=== PATIENT | male | born 1955 | race Caucasian/White ===

== ENCOUNTER 2018-05-02 07:40 | Inpatient (IN) | payer BC, OTHER, SELFPAY ==
--- NOTE | 2018-05-02 08:15 | RAD ---
1 VIEW CHEST: Date: 05/02/18 HISTORY: Heart attack. COMPARISON: 10/24/14. FINDINGS: There are stable sternotomy wires and mediastinal clips. Heart is enlarged. There is atherosclerosis of the aorta. Pulmonary vessels and hilum are normal. Costophrenic angles ar e clear. No consolidation or mass. No pneumothorax or osseous abnormalities. IMPRESSION: 1. Cardiomegaly. No evidence of congestive heart failure. 2. Atherosclerosis. POS: KELECHI
[2018-05-02 08:29] LABS: #Eosinphils 0.1 thou/uL (0.0-0.7); #Lymphocytes 0.9 thou/uL (1.20-3.40); #Monocytes 0.4 thou/uL (0.11-0.59); #Neutrophils 8.1 thou/uL (1.40-6.50); %Eosinophils 1.1 % (0.0-10.0); %Lymphocytes 9.3 % (21.0-51.0); %Monocytes 4.3 % (0.0-10.0); %Neutrophils 85.3 % (42.0-75.0); Hemoglobin 16.2 g/dL (14.0-18.0); Mean Corpuscular HGB CONC 33.6 g/dL (32.0-36.0); Mean Corpuscular Hemoglobin 29.5 pg (27.0-31.0); Mean Corpuscular Volume 87.8 fL (78.0-98.0); Platelet Count 189 thou/uL (130-400); RBC Distribution Width 12.5 % (11.5-14.5); White Blood Cell (WBC) Count 9.5 thou/uL (4.8-10.8)
[2018-05-02 08:41] LABS: ALT (SGPT) 14 U/L (8-55); AST (SGOT) 16 U/L (5-34); Albumin 3.8 g/dL (3.4-4.8); Alkaline Phosphatase 65 U/L (40-150); Anion Gap 11 mmol/L (10-20); BUN (Urea Nitrogen) 18 mg/dL (8.4-25.7); Bilirubin, Total 0.6 mg/dL (0.2-1.2); CK (CPK) 31 U/L (30-200); Calc. Creatinine Clearance 0 mL/min (70-130); Calcium 8.9 mg/dL (7.8-10.44); Carbon Dioxide 23 mmol/L (23-31); Chloride 107 mmol/L (98-107); Estimated GFR-MDRD 73; Globulin 3.3 g/dL (2.4-3.5); Glucose 133 mg/dL (80-115); Potassium 4.5 mmol/L (3.5-5.1); Protein, Total 7.1 g/dL (5.8-8.1); Sodium 136 mmol/L (136-145)
[2018-05-02] MEDS ORDERED: Ondansetron PF 4 MG/2 ML Vial IVP PRN ×2 (10:00→14:40)
[2018-05-02] MEDS ORDERED: Ondansetron ODT 4 MG TAB SL PRN (10:00)
--- NOTE | 2018-05-02 10:32 | CT ---
CT ANGIOGRAM OF THE HEAD: DATE: 05/02/2018. COMPARISON: None. HISTORY: Generalized weakness with chest pain and vision changes on the right. TECHNIQUE: Axial CT imaging at 5 mm intervals from vertex through the skull base without contrast. Then, axial CT imaging obtained at 1.25 mm intervals from vertex through the skull base using a CT angiogram prot ocol. Coronal and sagittal 3D reformatted imaging obtained. FINDINGS: The noncontrast-enhanced head CT demonstrates the imaged paranasal sinuses and mastoid air cells to b e well aerated. There is atherosclerotic calcification of the cavernous carotid arteries. There is no intracranial hemorrhage, midline shift, mass effect, or ventricular enlargement. Postcontrast CT angiogram imaging demonstrated patency of the imaged portions of bilateral vertebral arteries. The imaged portions of the left vertebral artery are hypoplastic, particularly the distal left vertebral artery. The basilar artery is patent. The posterior cerebral artery on the right is patent. The posterior cerebral artery on the left is o ccluded, best seen on axial image 86 and coronal image 59. It is occluded as it extends posterior to the left cerebral peduncle. The imaged extracranial internal carotid artery is patent. The M1 segment and the MCA bifurcation appears grossly unremarkable bilaterally. The A1 segment is p atent bilaterally. Distal HARIS and MCA branches appear grossly unremarkable. IMPRESSION: Occlusion of the posterior cerebral artery on the left. Recommend followup MRI of the brain to asses s for an associated left posterior CONTENT WRITER infarction. No intracranial hemorrhage. CODE T POS: KENDRA
[2018-05-02] MEDS ORDERED: ISOVUE-370 76%-LOCM 1 ML ONE (10:48)
[2018-05-02 13:03] LABS: Troponin I Less than 0.010 ng/mL (< 0.028)
--- NOTE | 2018-05-02 14:15 | HP ---
PRIMARY CARE PHYSICIAN: Dr. Prabhu Lees. REASON FOR ADMISSION: CVA/TIA. HISTORY OF PRESENT ILLNESS: A 62-year-old male, who has multiple medical problems including vasculopathy, he required CABG x2, he has ongoing smoking history, who presented to emergency room with complaint of visual change. The patient reports that when he went to bed, at that time he was perfectly fine last night. He woke up around 4 a.m. When he went to bathroom, he noticed that he was not able to see half vision from his right eye. He was requiring a lot of effort to focus on the right side. He was able to see perfectly fine with the left eye. He was seated at home feeling he will get better, but when this morning, he wanted to go to hunting, he was not feeling right and that is why around 6 o'clock he called Paramedics, and Paramedics brought him to emergency room for evaluation. He did not have any motor weakness. He was feeling little bit dizzy last night. He does feel headache on the left side. He denies any nausea, vomiting, chest pain, palpitation, shortness of breath. He denies any motor or sensory symptoms in both upper or lower extremities. In the emergency room, CT angiography of head showed occlusion of the posterior cerebral artery on the left side. Chest x-ray was unremarkable. Routine blood test was unremarkable. The patient is being admitted for rule out stroke. REVIEW OF SYSTEMS: CONSTITUTIONAL: Negative for weight loss or gain, ability to conduct usual activities. SKIN: Negative for rash, itching. EYES: Negative for double vision, pain. ENT/MOUTH: Negative for nose bleeding, neck stiffness, pain, tenderness. CARDIOVASCULAR: Negative for palpitations, dyspnea on exertion, orthopnea. RESPIRATORY: Negative for shortness of breath, wheezing, cough, hemoptysis, fever or night sweats. GASTROINTESTINAL: Negative for poor appetite, abdominal pain, heartburn, nausea, vomiting, constipation, or diarrhea. GENITOURINARY: Negative for urgency, frequency, dysuria, nocturia. MUSCULOSKELETAL: Negative for pain, swelling. NEUROLOGIC/PSYCHIATRIC: Negative for anxiety, depression. ALLERGY/IMMUNOLOGIC: Negative for skin rash, bleeding tendency. Please see my HPI for pertinent positives and negatives. All other review of systems reviewed and negative except as mentioned in HPI. PAST MEDICAL HISTORY: Coronary artery disease, required CABG x2; history of [place]; hypertension; dyslipidemia; tobacco abuse disorder; history of carotid atherosclerosis on the left side; benign enlargement of prostate. PAST SURGICAL HISTORY: CABG x2, bilateral wrist surgery. PAST PSYCHIATRIC HISTORY: Reviewed. Anxiety and depression. SOCIAL HISTORY: The patient drinks alcohol socially. He smokes about one pack per day since age 12. He denies any other illicit drug abuse. He lives at home with family. FAMILY HISTORY: Positive for coronary artery disease, hypertension among several family members. ALLERGIES: DIAZEPAM. CURRENT HOME MEDICATIONS: The patient did not bring his home medication, so we are not able to verify his home medication, but based on our hospital record, the patient is on following medications: 1. Aspirin 325 mg p.o. daily. 2. Cymbalta 60 mg daily. 3. Multivitamin one tablet daily. 4. Fish oil 4 g daily. 5. Omeprazole 20 mg daily. 6. Flomax 0.4 mg at bedtime. 7. Coreg 6.25 mg p.o. b.i.d. 8. Plavix 75 mg p.o. daily. 9. Lisinopril 2.5 mg p.o. daily. EMERGENCY ROOM COURSE: The patient is given aspirin 324 mg. PHYSICAL EXAMINATION: VITAL SIGNS: On arrival, blood pressure 170/93, pulse 55, respiratory rate 18, temperature 98.1, saturation 94% on room air. Weight 102.6 kg. GENERAL: The patient is currently alert, awake. No obvious acute distress. HEAD: Normocephalic, atraumatic. Eyes, pupils round, reactive to light. Extraocular muscle intact. No nystagmus. NECK: Supple. No JVD. No thyromegaly. No carotid bruit. LUNGS: Clear to auscultation without any rhonchi or rales. CARDIAC: S1 and S2 regular. No murmur. No gallop. No rub. ABDOMEN: Soft. Bowel sounds present. Nontender. Nondistended. No organomegaly. No mass. No suprapubic tenderness. BACK: Unremarkable. No CVA tenderness. EXTREMITIES: Upper extremities; passive movement of all joints is normal. Lower extremities; no edema, good distal pulsation. SKIN: No skin rash. HEMATOLOGICAL: No lymphadenopathy. PSYCHIATRIC: Normal affect. NEUROLOGIC: The patient does have mild visual changes from the right eye, but other than that, the patient's motor and sensory system exam are normal. Reflex is symmetrical. Plantar bilateral flexor. No cerebellar sign. LABORATORY DATA: Significant labs; EKG showing sinus bradycardia, sinus arrhythmia without any ischemic changes. CT of brain negative for any acute intracranial process. CT angiography showed occlusion of the posterior cerebral artery on the left side. CBC; WBC 9.5, hemoglobin 16.2, and platelets 189. BMP; sodium 136, potassium 4.5, chloride 107, carbon dioxide 23, BUN 18, creatinine 1.03, glucose 133, calcium 8.9. LFT: AST 16, ALT 14, alkaline phosphatase 65, albumin 3.8. Troponin less than 0.010. ASSESSMENT AND PLAN: Impression: 1. Acute transient ischemic attack/cerebrovascular accident. The patient does have occlusion of a posterior cerebral artery on the left side and the patient's symptoms of visual changes on the right side corresponds with occipital lobe transient ischemic attack/cerebrovascular accident. At this point, we will keep this patient on Stroke floor. We will consult Neurology. We will do MRI, carotid Doppler, echocardiography as a part of workup. We will continue with aspirin 325 mg p.o. daily, Plavix 75 mg p.o. daily, Lipitor 40 mg p.o. at bedtime. His blood pressure medication, Coreg 6.25 mg p.o. will be started, and we will restart all his home medication after verification of his home medication. 2. Hypertension, currently not well controlled. We will try to keep his blood pressure around 160 to 180s. We will continue only his home medication. 3. Dyslipidemia. Check lipid profile tomorrow morning and continue Lipitor 40 mg p.o. at bedtime. 4. Benign enlargement of prostate. Continue Flomax 0.4 mg p.o. at bedtime after verification. 5. Gastroesophageal reflux disease. We will continue Protonix 40 mg p.o. daily. 6. Coronary artery disease with history of coronary artery bypass grafting. Continue aspirin, Plavix, beta renetta as per home dosage. 7. Tobacco abuse disorder. Smoking cessation counseling given. Healthy lifestyle measure discussed with the patient. 8. Anxiety and depression. Continue the patient's home medication of Cymbalta as per home dosage. 9. Deep venous thrombosis prophylaxis, Lovenox 40 mg subcu daily. 10. Gastrointestinal prophylaxis, Protonix 40 mg p.o. daily. CODE STATUS: The patient is full code. The patient does not have any surrogate decision maker. DISPOSITION PLAN: Based on clinical course, likely within 24 hours, pending above-mentioned investigation result. Job ID: [id number]
[2018-05-02] MEDS ORDERED: Bisacodyl 5 MG TAB PO PRN (14:40)
[2018-05-02] MEDS ORDERED: Bisacodyl 10 MG SUPP PR PRN (14:40)
[2018-05-02] MEDS ORDERED: Calcium Carbonate 500 MG ChewTAB PO PRN (14:40)
[2018-05-02] MEDS ORDERED: Loperamide HCl 2 MG CAP PO PRN (14:40)
[2018-05-02] MEDS ORDERED: HYDROcodone/Acetaminophen 5/325 mg Tablet PO PRN (14:40)
[2018-05-02] MEDS ORDERED: Ondansetron ODT 4 MG TAB PO PRN (14:40)
[2018-05-02] MEDS ORDERED: Acetaminophen 325 MG TAB PO PRN (14:40)
[2018-05-02] MEDS ORDERED: Senokot S 8.6-50 MG TAB PO PRN (14:40)
[2018-05-02] MEDS ORDERED: Zolpidem Tartrate 5 MG TAB PO PRN (14:40)
[2018-05-02 14:46] VITALS: BMI 28.8
[2018-05-02] MEDS: hydrALAZINE 20 MG/ML VIAL SLOW IVP PRN (15:07)
[2018-05-02 15:34] LABS: Troponin I Less than 0.010 ng/mL (< 0.028)
[2018-05-02] MEDS ORDERED: Labetalol HCl 100 MG/20 ML VIAL SLOW IVP SCH (17:30)
--- NOTE | 2018-05-02 18:37 | ULT ---
CAROTID ARTERIAL DOPPLER ULTRASOUND 05/02/18 COMPARISON: None. HISTORY: Generalized weakness with chest pain and vision changes. TECHNIQUE: Multiplanar self scale sonographic imaging of the arterial structures of the neck obtained. Arterial structures are assessed with color and spectral analysis. FINDINGS: Partially calcified plaque noted at the origin of the right internal carotid artery extending into th e mid right ICA. Mild partially calcified plaque noted in proximal left internal carotid artery extending into the mid left internal carotic artery. Antegrade blood flow and normal arterial waveforms are documented with in the carotid and the vertebral system bilaterally. VESSELS PSV (cm/s) EDV (cm/s) Right CCA 99 14 Right ICA 49 14 Right ECA 109 21 Left CCA 84 17 Left ICA 134 41 Left ECA 127 28 ICA/CCA ratio is 0.5 on the right and 1.6 on the left. IMPRESSION: Mildly elevated velocity within the left internal carotid artery correlates with a moderate degree of stenosis (50-69%). Further assessment via CT angiogram of the neck is advised. POS: KELECHI
--- NOTE | 2018-05-02 18:57 | MRI ---
BRAIN MRI WITHOUT CONTRAST: 05/02/18 COMPARISON: None. HISTORY: Transient ischemic attack, assess for acute infarction. TECHNIQUE: Multiplanar and multisequence MR imaging of the brain is obtained without contrast. FINDINGS: There is an area of restricted diffusion within the inferomedial left temporo-occipital region, measu ring 6 cm AP dimension x 2.2 cm transverse dimension consistent with an acute infarction of left UPPER LEATHER SORTER territory. This correlates with the occlusion of the left UPPER LEATHER SORTER seen on recent CT angiogram of the head also performed 05/02/18. The axial gradient echo imaging demonstrates no associated intracranial hemorrhage. The T2 and FLAIR imaging demonstrates cortical increased signal intensity in the area of the above described acute inf arction. There are multiple scattered foci of increased T2 and FLAIR signal within the periventricul ar, deep, and subcortical white matter, evidence of small vessel disease. Regional bone marrow signal intensity appears within normal limits. Imaged paranasal sinuses/mastoid air cells grossly unremarkable. IMPRESSION: Acute left UPPER LEATHER SORTER infarction. POS: KELECHI
[2018-05-02] MEDS ORDERED: Melatonin 3 MG TAB PO SCH (21:00)
[2018-05-02] MEDS ORDERED: Atorvastatin Calcium 40 MG TAB PO SCH (21:00)
--- NOTE | 2018-05-03 01:28 | CON ---
DATE OF CONSULTATION: 05/02/2018 TYPE OF CONSULTATION: Neurology. CONSULTING PHYSICIAN: Hospitalist service. IMPRESSION: 1. Left posterior cerebral artery stroke resulting in secondary headache and reading difficulties. 2. Hypertension. 3. Coronary artery disease. 4. Tobacco use. PLAN: 1. Aspirin 325 mg per day. 2. Start a statin. 3. Discontinue smoking. 4. Cautiously lower the blood pressure over the next 24 hours. 5. The patient will be discharged to home once his pressure has stabilized. HISTORY: Mr. Hussein is a 62-year-old male with a past history as listed above. He developed acute onset of headache and came to the emergency room for evaluation. His initial CT angiogram showed an absent left posterior cerebral artery. He was admitted for further evaluation. He had an MRI of the brain done today, which showed an area of ischemia involving the left mesiotemporal lobe. His carotid Doppler does not show any extracranial stenosis. He was not taking aspirin or statin prior to this event. His blood pressures have been running quite high since admission, currently it is 217/100. He has been afebrile. He denies any nausea, vomiting, dizziness, blurred vision, lateralized weakness or numbness. There is no past history of TIA or stroke-like symptoms. PAST MEDICAL HISTORY: As listed above. PAST SURGICAL HISTORY: Coronary bypass. FAMILY HISTORY: Noncontributory. SOCIAL HISTORY: One pack of cigarettes per day. Minimal alcohol use. MEDICATIONS: List was reviewed. REVIEW OF SYSTEMS: No complaints of chest pain, shortness of breath, abdominal pain, cramps, or diarrhea. PHYSICAL EXAMINATION: GENERAL: He is a somewhat overweight middle-aged man, in no acute distress. VITAL SIGNS: Blood pressure 117/100, pulse 66, respirations 20, and temperature 97.9. HEENT: Pupils are equal and reactive. Conjunctivae are clear. Oropharynx is clear. Normocephalic and atraumatic. NECK: Supple. No lymphadenopathy. EXTREMITIES: No cyanosis, clubbing, or edema. NEUROLOGIC: He was alert and cooperative. His speech was fluent and clear. Cranial nerves appeared to be intact without any visual field deficits. He comprehended commands quite well, but reports that he could not read the menu to determine what he wanted to eat. Cranial nerve exam is otherwise unremarkable. Motor, strength is symmetric without fix or drift. Cerebellar testing shows normal [id number] and rapid alternating movements. He can walk independently. Sensation is intact to touch. Plantar responses were downgoing on the left and upgoing on the right. DIAGNOSTIC DATA: EKG shows sinus rhythm. Imaging was reviewed. SUMMARY: Middle-aged man with multiple risk factors, who suffered a medium vessel stroke, was not on any type of antiplatelet therapy or statin. Hopefully, he will make a good recovery over the next few days. Job ID: [id number]
[2018-05-03] MEDS: hydrALAZINE 20 MG/ML VIAL SLOW IVP PRN (04:26)
[2018-05-03 05:38] LABS: Cholesterol 160 mg/dl (< 200 Desired); HDL Cholesterol 32 mg/dL (>60 Neg Risk); LDL Cholesterol, Calculated 92 mg/dL; Magnesium 1.6 mg/dL (1.6-2.6); Potassium 3.8 mmol/L (3.5-5.1); Triglycerides 178 mg/dL (Less than 150)
[2018-05-03] MEDS: Cyclobenzaprine 10 MG TAB PO SCH ×2 (08:36→14:15)
[2018-05-03] MEDS: HYDROcodone/Acetaminophen 10/325 mg Tablet PO SCH ×2 (08:37→14:13)
[2018-05-03] MEDS ORDERED: Famotidine 20 MG TAB PO SCH (09:00)
[2018-05-03] MEDS ORDERED: Enoxaparin Sodium 40 MG/0.4 ML SYRINGE SC SCH (09:00)
[2018-05-03] MEDS ORDERED: Lisinopril 5 MG TAB PO SCH (09:00)
[2018-05-03] MEDS ORDERED: Amitriptyline HCl 25 MG TAB PO SCH (09:00)
[2018-05-03] MEDS ORDERED: Carvedilol 6.25 MG TAB PO SCH (09:00)
[2018-05-03] MEDS ORDERED: Aspirin 81 mg Enteric Coated Tablet PO SCH (09:00)
[2018-05-03] MEDS ORDERED: Clopidogrel Bisulfate 75 MG TAB PO SCH (09:00)
--- NOTE | 2018-05-03 10:38 | PDOC.PN ---
- Subjective Encounter Start Date: 05/03/18 Encounter Start Time: 07:10 -: old records requested/rev Patient seen and examined. No new complaints. No overnight events he has difficulty reading with right eye - Objective Resuscitation Status - Order Detail: 05/02/18 13:13 Resuscitation Status Routine Resuscitation Status: FULL: Full Resuscitation MAR Reviewed: Yes Vital Signs & Weight: Vital Signs (12 hours) Temp Pulse Pulse Pulse Resp BP BP 05/03/18 08:54 167/92 H 179/103 H 05/03/18 08:37 73 05/03/18 08:00 97.6 F 73 16 05/03/18 07:59 79 83 176/84 H 188/96 H 05/03/18 04:46 98.1 F 72 16 05/03/18 04:26 92 05/03/18 04:19 92 05/02/18 23:27 98.5 F 82 16 BP Pulse Ox 05/03/18 08:54 05/03/18 08:37 05/03/18 08:00 172/91 H 99 05/03/18 07:59 05/03/18 04:46 98 05/03/18 04:26 05/03/18 04:19 190/93 H 05/02/18 23:27 142/99 H 98 Weight Weight 225 lb 1 oz I&O: 05/02/18 05/03/18 05/04/18 06:59 06:59 06:59 Intake Total 1621 Balance 1621 Result Diagrams: 05/02/18 08:08 05/03/18 04:20 Radiology Reviewed by me: Yes (MRI left FIBER HEEL PIECE SHAPER CVA) EKG Reviewed by me: Yes (nsr) Phys Exam - Physical Examination Constitutional: NAD HEENT: PERRLA, moist MMs, sclera anicteric Neck: no JVD, supple Respiratory: no wheezing, no rales, no rhonchi Cardiovascular: RRR, no significant murmur, no rub Gastrointestinal: soft, non-tender, no distention, positive bowel sounds Musculoskeletal: no edema, pulses present Neurological: non-focal, normal sensation, moves all 4 limbs Psychiatric: normal affect, A&O x 3 Skin: no rash, normal turgor Dx/Plan (1) Acute CVA (cerebrovascular accident) Code(s): I63.9 - CEREBRAL INFARCTION, UNSPECIFIED Status: Acute Comment: acute left FIBER HEEL PIECE SHAPER CVA due to infarct (2) Back pain, chronic Code(s): M54.9 - DORSALGIA, UNSPECIFIED; G89.29 - OTHER CHRONIC PAIN Status: Chronic (3) CAD (coronary artery disease) Code(s): I25.10 - ATHSCL HEART DISEASE OF [place] CORONARY ARTERY W/O ANG PCTRS Status: Chronic (4) Carotid stenosis, left Code(s): I65.22 - OCCLUSION AND STENOSIS OF LEFT CAROTID ARTERY Status: Chronic (5) Depression Code(s): F32.9 - MAJOR DEPRESSIVE DISORDER, SINGLE EPISODE, UNSPECIFIED Status : Chronic (6) Hyperlipidemia Code(s): E78.5 - HYPERLIPIDEMIA, UNSPECIFIED Status: Chronic (7) Hypertension Code(s): I10 - ESSENTIAL (PRIMARY) HYPERTENSION Status: Chronic (8) Tobacco abuse Code(s): Z72.0 - TOBACCO USE Status: Chronic - Plan cont current plan of care, PT/OT * will get CT angio neck to rule out carotid stenosis * medication reviewed as below * symptomatic treatment * continue current optimum medical therapy * neurology recommendation noted * counselled to avoid smoking. Review of Systems - Review of Systems Constitutional: negative: fever, chills, sweats, weakness, malaise, other Eyes: Vision Change. negative: Pain, Conjunctivae Inflammation, Eyelid Inflammation, Redness, Other ENT: negative: Ear Pain, Ear Discharge, Nose Pain, Nose Discharge, Nose Congestion, Mouth Pain, Mouth Swelling, Throat Pain, Throat Swelling, Other Respiratory: negative: Cough, Dry, Shortness of Breath, Hemoptysis, SOB with Excertion, Pleuritic Pain, Sputum, Wheezing Cardiovascular: negative: chest pain, palpitations, orthopnea, paroxysmal nocturnal dyspnea, edema, light headedness, other Gastrointestinal: negative: Nausea, Vomiting, Abdominal Pain, Diarrhea, Constipation, Melena, Hematochezia, Other Genitourinary: negative: Dysuria, Frequency, Incontinence, Hematuria, Retention , Other Musculoskeletal: negative: Neck Pain, Shoulder Pain, Arm Pain, Back Pain, Hand Pain, Leg Pain, Foot Pain, Other Skin: negative: Rash, Lesions, Gregorio, Bruising, Other - Medications/Allergies Allergies/Adverse Reactions: Allergies Allergy/AdvReac Type Severity Reaction Status Date / Time diazepam [From Valium] Allergy "makes me Verified 08/16/15 14:23 itch" Medications: Current Medications Acetaminophen (Tylenol) 650 mg PO Q4H PRN PRN Reason: Headache/Fever/Mild Pain (1-3) Last Admin: 05/02/18 17:26 Dose: 650 mg Hydrocodone Bitart/Acetaminophen (Llano 5/325) 1 tab PO Q4H PRN PRN Reason: Moderate Pain (4-6) Last Admin: 05/03/18 01:22 Dose: 1 tab Hydrocodone Bitart/Acetaminophen (Llano 10/325) 1 tab PO QID [facility] Last Admin: 05/03/18 08:37 Dose: 1 tab Amitriptyline HCl (Elavil) 50 mg PO BID [facility] Last Admin: 05/03/18 08:36 Dose: 50 mg Aspirin (Ecotrin) 81 mg PO DAILY [facility] Last Admin: 05/03/18 08:36 Dose: 81 mg Atorvastatin Calcium (Lipitor) 40 mg PO HS [facility] Last Admin: 05/02/18 21:38 Dose: 40 mg Bisacodyl (Dulcolax) 10 mg PO DAILYPRN PRN PRN Reason: Constipation Bisacodyl (Dulcolax) 10 mg VT DAILYPRN PRN PRN Reason: Constipation Calcium Carbonate (Tums) 1,000 mg PO Q4H PRN PRN Reason: Heartburn or Indigestion Carvedilol (Coreg) 6.25 mg PO BID [facility] Last Admin: 05/03/18 08:36 Dose: 6.25 mg Clopidogrel Bisulfate (Plavix) 75 mg PO DAILY [facility] Last Admin: 05/03/18 08:36 Dose: 75 mg Cyclobenzaprine HCl (Flexeril) 10 mg PO TID [facility] Last Admin: 05/03/18 08:36 Dose: 10 mg Enoxaparin Sodium (Lovenox) 40 mg SC 0900 [facility] Last Admin: 05/03/18 08:35 Dose: 40 mg Famotidine (Pepcid) 20 mg PO BID [facility] Last Admin: 05/03/18 08:37 Dose: 20 mg Hydralazine HCl (Apresoline) 10 mg SLOW IVP Q4H PRN PRN Reason: SBP Greater Than 180 Last Admin: 05/03/18 04:26 Dose: 10 mg Lisinopril (Zestril) 5 mg PO DAILY [facility] Last Admin: 05/03/18 08:37 Dose: 5 mg Loperamide HCl (Imodium) 2 mg PO PRN PRN PRN Reason: Diarrhea/Loose Stools Melatonin (Melatonin) 9 mg PO HS [facility] Ondansetron HCl (Zofran Odt) 4 mg PO Q6H PRN PRN Reason: Nausea/Vomiting Ondansetron HCl (Zofran) 4 mg IVP Q6H PRN PRN Reason: Nausea/Vomiting Senna/Docusate Sodium (Senokot S) 2 tab PO BID PRN PRN Reason: Constipation Zolpidem Tartrate (Ambien) 5 mg PO HSPRN PRN PRN Reason: Insomnia
--- NOTE | 2018-05-03 13:15 | CT ---
CONTRAST ENHANCED CTA CAROTID: HISTORY: Left-sided carotid stenosis. FINDINGS: Contrast-enhanced CTA carotid arteries performed. Two-D and 3D reconstructed images performed on an independent 3D work station. Comparison is made to a previous CTA from 03/09/2015. A small area of possible spiculated density is seen in the posterior aspect of the right upper lobe s een on axial image #68. This previously was not present and may represent an area of newly developed scar. Correlate with followup CT images of chest. There is also again some airspace opacity seen i n the anterior aspect of the right upper lobe likely due to chronic possible areas of scarring not si gnificantly changes since the previous comparison CT. The previously visualized sternotomy defect has healed. Atherosclerotic calcifications seen in the aortic arch. CT images of soft tissue neck demonstrate no obvious evidence of masses or lesions. The thyroid glan d is unremarkable. The brachiocephalic artery is patent. The right common carotid artery is patent. There is minimal atherosclerotic plaque in the origin of the right ICA resulting in approximately 10- 15% stenosis without evidence of significant flow-limiting lesions. The left common carotid artery is patent. There is extensive atherosclerotic plaque in the proximal left ICA resulting in approximately 50-60% proximal left ICA stenosis. This apparently has not signi ficantly changed since the previous comparison exam. No significant evidence of vertebral stenosis is seen. IMPRESSION: Approximately 60% proximal left internal carotid artery stenosis not significantly changed since the previous comparison CTA from February of 2015. POS: [facility]
[2018-05-03] MEDS ORDERED: Iopamidol 370 76% 100 ML VIAL ONE (13:29)
--- NOTE | 2018-05-03 14:53 | DIS ---
DATE OF ADMISSION: 05/02/2018 DATE OF DISCHARGE: 05/03/2018 PRIMARY CARE PHYSICIAN: Dr. Prabhu Lees. DISCHARGE DISPOSITION: Home. PRIMARY DISCHARGE DIAGNOSIS: Left posterior cerebral artery stroke. SECONDARY DISCHARGE DIAGNOSES: 1. Tobacco abuse disorder. 2. Hypertension. 3. Dyslipidemia. 4. Depression. 5. Left carotid stenosis. 6. Coronary artery disease. 7. Chronic low back pain. PRIMARY PROCEDURE/OPERATION: None. RADIOLOGICAL INVESTIGATION: Chest x-ray normal. CT [place] angiography unremarkable. CT angiography neck showed 60% left carotid stenosis. Carotid Doppler showed 59% to 70% stenosis. 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 LABORATORY DATA: Significant labs; WBC 9.5, hemoglobin 16.2, platelets 189. Sodium 136, creatinine 1.03. LFT normal. Cardiac enzyme negative. LDL 92. DISCHARGE MEDICATIONS: 1. Aspirin 81 mg p.o. daily. 2. Plavix 75 mg p.o. daily. 3. Coreg 6.25 mg p.o. b.i.d. 4. Lipitor 40 mg p.o. at bedtime. 5. Nitroglycerin 0.4 mg sublingual p.r.n. 6. Melatonin 10 mg p.o. at bedtime. 7. Lisinopril 5 mg p.o. daily. 8. [place] 10 one tablet q.i.d. p.r.n. 9. Flexeril 10 mg t.i.d. p.r.n. 10. Elavil 50 mg b.i.d. CONTRAINDICATION: None. CODE STATUS: Full code. INPATIENT DISTANCE LEARNING COORDINATOR: Dr. Niels Cordero was consulted while in hospital. TEST RESULTS PENDING ON DISCHARGE: None. ALLERGIES: DIAZEPAM. DISCHARGE PLAN: Post hospital, the patient is instructed to follow up with PCP in 1 week. The patient is also instructed to follow up with Speech Therapy as well as CT surgeon for carotid followup. HOSPITAL COURSE: This is a 62-year-old male, who was admitted by me. Please see my HPI for further details. The patient was having visual symptoms through his right eye. He was not able to see half vision through the right eye and he was also having headache. He had a CT [place], which was negative for any acute process. 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 He has stable carotid stenosis on the left side, which contributed to his current stroke. We added aspirin on his regimen. We increased Lipitor to 40 mg p.o. at bedtime. His blood pressure was well controlled while in hospital. All necessary medication given to him. The patient wants to go home. He does not want to stay in hospital for further adjustment of his blood pressure medication while in the hospital. He insists on going home because he has to take care of his pet. Based on his request, we decided to let him go home, and he will follow up with primary care physician in 1 week. We also discussed with him the importance of followup with a CT surgeon for carotid stenosis. We also advised him to keep checking blood pressure frequently and follow up with primary care physician in few days for further adjustment of blood pressure medication. The patient is seen and examined at bedside today. Please see my progress note from today for further detail. Job ID: [id number]
[2018-05-03 15:49] VITALS: BP 177/90; TEMP 98.8
[2018-05-03] MEDS ORDERED: Melatonin 3 MG TAB PO SCH (21:00)
--- NOTE | 2018-05-04 13:54 | EKG ---
Test Reason : Blood Pressure : / mmHG Vent. Rate : 050 BPM Atrial Rate : 050 BPM P-R Int : 180 ms QRS Dur : 158 ms QT Int : 492 ms P-R-T Axes : 055 -59 -21 degrees QTc Int : 448 ms Sinus bradycardia with sinus arrhythmia Possible Left atrial enlargement Left axis deviation Right bundle branch block Left ventricular hypertrophy Lateral infarct , age undetermined Inferior infarct , age undetermined Abnormal ECG Confirmed by VIRGIE FRANKLIN ([id number]), technical editor MOMO LOVE ([id number]) on 05/04/2018 1:54:12 PM Referred By: Confirmed By:VIRGIE FRANKLIN
== END 2018-05-03 17:06 | disposition home or self-care (01) | DRG 66 ==
LOC: ERS 07:40 → 2SE 10:53 → OBSVTOIN 10:53
PROVIDERS: ADMIT Internal Medicine; ATTEND Internal Medicine
DX: I63.532 Cerebral infarction due to unspecified occlusion or stenosis of left posterior cerebral artery (principal); I65.22 Occlusion and stenosis of left carotid artery; F17.210 Nicotine dependence, cigarettes, uncomplicated; I10 Essential (primary) hypertension; E78.5 Hyperlipidemia, unspecified; I25.10 Atherosclerotic heart disease of native coronary artery without angina pectoris; G89.29 Other chronic pain; M54.5 Low back pain; H53.8 Other visual disturbances; F41.9 Anxiety disorder, unspecified; F32.9 Major depressive disorder, single episode, unspecified; N40.0 Benign prostatic hyperplasia without lower urinary tract symptoms; K21.9 Gastro-esophageal reflux disease without esophagitis; I25.2 Old myocardial infarction; Z95.1 Presence of aortocoronary bypass graft; Z88.8 Allergy status to other drugs, medicaments and biological substances; Z79.899 Other long term (current) drug therapy
CPT/HCPCS: 36415; 70496; 70498; 70551; 71045; 80053; 80061; 82550; 83735; 84132; 84484; 85025; 93005; 93880; G8978-GP-CJ; G8979-GP-CJ; G8980-GP-CJ; G8987-GO-CI; G8988-GO-CI; G8989-GO-CI; G9174-GN-CL; G9175-GN-CJ; J0360; J1650

== ENCOUNTER 2020-03-09 12:02 | Inpatient (IN) | payer MEDICARE, OTHER ==
[2020-03-09] MEDS ORDERED: Lidocaine 1% PF 5 ML VIAL ONE (12:12)
[2020-03-09] MEDS ORDERED: Succinylcholine Chloride 20 MG/ML 10 ml SYRINGE FS ONE (12:12)
[2020-03-09] MEDS ORDERED: EPHEDRINE 25 MG/5 ML SYRINGE ONE (12:12)
[2020-03-09] MEDS ORDERED: PHENYLEPHRINE-NS 100 MCG/ML 10 ML SYRINGE ONE ×2 (12:12→16:19)
[2020-03-09] MEDS ORDERED: Calcium Chloride 1 GM/10 ML Abboject SYRINGE ONE (12:12)
[2020-03-09] MEDS ORDERED: Glycopyrrolate 0.2 MG/ML 5 ML SYRINGE ONE (12:12)
[2020-03-09] MEDS ORDERED: Dexamethasone 20 MG/5 ML VIAL ONE (12:12)
[2020-03-09] MEDS ORDERED: Rocuronium Bromide 10 MG/ML (10ML VIAL) ONE (12:12)
[2020-03-09] MEDS ORDERED: Ondansetron PF 4 MG/2 ML Vial ONE ×2 (12:12→12:19)
[2020-03-09] MEDS ORDERED: PROPOFOL 200 MG/20 ML VIAL ONE (12:12)
[2020-03-09] MEDS ORDERED: Morphine 4 MG/ML VIAL ONE ×2 (12:19→12:20)
[2020-03-09 12:42] LABS: INR-International Normal Ratio 1.1; PTT 32.9 sec (22.9-36.1); Prothrombin Time 14.4 sec (12.0-14.7)
--- NOTE | 2020-03-09 12:45 | CT ---
EXAM: CT brain without contrast HISTORY: Fall with head trauma COMPARISON: CT 03/08/2015 and MRI brain 05/02/2018 TECHNIQUE: Multiple contiguous axial images were obtained and a CT of the brain without contrast. FINDINGS: There are scattered hypodensities in the subcortical and periventricular white matter consi stent with small vessel ischemic disease. There is an area of encephalomalacia in the left parietal lobe in the region where the acute infarction was seen on prior MRI. There is no evidence of hydrocep halus, intracranial hemorrhage, or extra-axial fluid collection. The calvarium and overlying soft tissues are unremarkable. The visualized paranasal sinuses and masto id air cells are well aerated. IMPRESSION: No evidence of acute intracranial abnormality Dr. Davis notified of findings at 12:45 PM on 03/09/2020
--- NOTE | 2020-03-09 12:49 | CT ---
EXAM: CT of the cervical spine without contrast HISTORY: Neck pain after 15 foot fall COMPARISON: 07/15/2007 TECHNIQUE: Multiple contiguous axial images were obtained in a CT of the cervical spine without contr ast. Sagittal and coronal reformats were performed. FINDINGS: The vertebral bodies demonstrate normal height and alignment without fracture or subluxatio n. The intervertebral discs are narrowed throughout cervical spine with small surrounding osteophytes. No prevertebral soft tissue swelling is seen. The posterior facets are well aligned. Normal alignment of the skull base with the cervical spine is seen. There is possibly a 1.1 cm nodule in the right lung apex. Calcifications are seen in the carotid randall manuela. IMPRESSION: 1. No evidence of acute osseous abnormality of the cervical spine. 2. Possible right apical lung nodule. A CT the chest with contrast is recommended for further evaluat ion. Dr. Davis notified of findings at 12:45 PM on 03/09/2020
[2020-03-09 12:52] LABS: ALT (SGPT) 17 U/L (8-55); AST (SGOT) 22 U/L (5-34); Albumin 3.9 g/dL (3.4-4.8); Alkaline Phosphatase 56 U/L (40-110); Anion Gap 9 mmol/L (10-20); BUN (Urea Nitrogen) 20 mg/dL (8.4-25.7); Bilirubin, Total 0.8 mg/dL (0.2-1.2); Calc. Creatinine Clearance 0 mL/min (70-130); Calcium 8.3 mg/dL (7.8-10.44); Carbon Dioxide 24 mmol/L (23-31); Chloride 109 mmol/L (98-107); Estimated GFR-MDRD 49; Globulin 2.6 g/dL (2.4-3.5); Glucose 94 mg/dL (80-115); Potassium 4.1 mmol/L (3.5-5.1); Protein, Total 6.5 g/dL (5.8-8.1); Sodium 138 mmol/L (136-145)
--- NOTE | 2020-03-09 12:57 | RAD ---
EXAM: 2 views of the left hip HISTORY: Left hip pain after fall 15 feet COMPARISON: None FINDINGS: 2 views of the left hip shows a fracture of the left femoral neck which is mildly displaced . No degenerative changes are seen. No soft tissue swelling is present. IMPRESSION: Left femoral neck fracture
--- NOTE | 2020-03-09 12:58 | RAD ---
Exam: Single view of the pelvis HISTORY: Pelvic and hip pain after fall COMPARISON: 07/15/2007 FINDINGS: A single view the pelvis shows a fracture of the left femoral neck. No dislocation is seen. No other fractures are seen. No degenerative changes seen in either hip. Degenerative changes are seen in the lumbar spine. IMPRESSION: Left femoral neck fracture
--- NOTE | 2020-03-09 13:00 | RAD ---
EXAM: Single view of the chest HISTORY: Trauma after falling 15 feet COMPARISON: 05/02/2018 FINDINGS: Single view of the chest shows an enlarged but stable cardiomediastinal silhouette. The pa tient is status post sternotomy. There is a pacemaker with its leads in the right atrium, right ventricle, and coronary sinus. There is no evidence of consolidation, mass, or pleural effusion. Dege nerative changes are seen in the spine. IMPRESSION: No evidence of acute cardiopulmonary disease
[2020-03-09 13:14] LABS: #Eosinphils 0.1 thou/uL (0.0-0.7); #Lymphocytes 0.9 thou/uL (1.20-3.40); #Monocytes 0.4 thou/uL (0.11-0.59); #Neutrophils 6.3 thou/uL (1.40-6.50); %Eosinophils 1.3 % (0.0-10.0); %Lymphocytes 11.4 % (21.0-51.0); %Monocytes 5.3 % (0.0-10.0); Hemoglobin 14.9 g/dL (14.0-18.0); Mean Corpuscular HGB CONC 34.5 g/dL (32.0-36.0); Mean Corpuscular Hemoglobin 30.6 pg (27.0-31.0); Mean Corpuscular Volume 88.7 fL (78.0-98.0); Mean Platelet Volume 9.3 fL (7.4-10.4); Platelet Count 116 thou/uL (130-400); Platelet Morphology Comment Appears Decreased; RBC Distribution Width 12.7 % (11.5-14.5); RBC Morphology Normal; Red Blood Cell (RBC) Count 4.88 mill/uL (4.70-6.10); White Blood Cell (WBC) Count 7.6 thou/uL (4.8-10.8)
[2020-03-09] MEDS ORDERED: Midazolam HCl 2 mg/2 ml Vial ONE (13:28)
[2020-03-09] MEDS ORDERED: Fentanyl 100 MCG/2 ML VIAL ONE ×5 (13:28→16:44)
[2020-03-09] MEDS ORDERED: CEFAZOLIN 2 GM in Premix Bag 1 BAG IVPB SCH (14:15)
[2020-03-09 14:46] LABS: SARS-CoV-2 NAA Rapid Test Not Detected (NotDetected)
[2020-03-09] MEDS ORDERED: Dextrose 50% Abboject 50 ML SYRINGE SLOW IVP PRN (15:21)
[2020-03-09] MEDS ORDERED: Dextrose 5% in Water 1,000 ML IV PRN (15:21)
[2020-03-09] MEDS ORDERED: Ondansetron PF 4 MG/2 ML Vial IVP PRN (15:21)
[2020-03-09] MEDS ORDERED: Sodium Chloride 0.9% 1,000 ML IV SCH (15:30)
--- NOTE | 2020-03-09 15:55 | HP ---
REQUESTING PHYSICIAN: ER resident. CONSULTS: Orthopedic Surgery, Dr. Gomez. CHIEF COMPLAINT: Level 2 trauma activation, fall from ladder, approximately 15 feet, no loss of consciousness, takes Plavix. HISTORY OF PRESENT ILLNESS: This is a 64-year-old gentleman, who takes Plavix daily for multiple stents be in place. The patient presented by EMS after falling approximately 15 feet from a ladder while attempting to cut tree branches. The patient denies any loss of consciousness. The patient only complains of left hip pain. The patient denies feeling weak, dizzy, lightheaded, or shortness of breath prior to incident. The patient denies any chest pain or shortness of breath at this time. The patient's legs are neurovascularly intact. The patient has no other obvious injuries. The patient was evaluated and found to have a left femoral neck fracture. Trauma Services were asked to admit the patient. The patient was given morphine and Zofran in the emergency room. REVIEW OF SYSTEMS: A 10-point review of systems is negative unless otherwise indicated in the above HPI. ALLERGIES: DIAZEPAM. CURRENT MEDICATIONS: 1. Plavix 75 mg once a day. Last dose at 6 o'clock this morning. 2. Ecotrin 325 mg once a day. 3. Sertraline 50 mg once a day. 4. Carvedilol 25 mg b.i.d. 5. Atorvastatin 40 mg at bedtime. 6. Furosemide 40 mg q.a.m. 7. Ibuprofen 150 mg once a day. PAST MEDICAL HISTORY: Hypertension, coronary artery disease, myocardial infarction x7, bradycardia requiring a pacemaker and defibrillator. SURGICAL HISTORY: Coronary artery bypass graft three vessels in 2015, bilateral wrist surgeries, pacemaker defibrillator. SOCIAL HISTORY: The patient drinks rarely. Denies illicit drug use. The patient smokes one pack a day since the age of 12. The patient lives at home alone. PHYSICAL EXAMINATION: VITAL SIGNS: Blood pressure 172/65, pulse 71, respirations 16, SpO2 of 95% on room air, temperature 98.3. GENERAL: Well-appearing elderly male, awake, alert, in no distress. HEENT: Head is atraumatic, normocephalic. Midface stable. Conjunctivae normal. Pupils equal bilateral at 3 mm. Ear and nasal exam normal. NECK: No cervical spine tenderness. Normal range of motion of neck. Trachea is midline. RESPIRATORY: Good inspiratory and expiratory effort. Bilateral breath sounds clear with no wheezing, rales, or rhonchi. No obvious chest deformity. CARDIOVASCULAR: Regular rate and regular rhythm. No murmurs. No pedal edema. ABDOMEN: Soft, nontender, nondistended. No peritoneal signs. Left hip tenderness to palpation. EXTREMITIES: Left lower extremity is externally rotated and mildly shortened. Distal pulses 2+ in all extremities. Neurovascularly intact in all extremities. The patient has some superficial abrasions to right lower extremity. NEUROLOGIC: No focal deficits. GCS 15. LABORATORY DATA: WBC 7.6, RBC 4.88, hemoglobin 14.9, hematocrit 43.3, platelets 116. PT 14.4, INR 1.1, APTT 32.9. Sodium 138, potassium 4.4, chloride 109, BUN 20, creatinine 1.45, estimated GFR 49, glucose 94, calcium 8.3, AST 22, ALT 17, alkaline phos 56, albumin 3.9. COVID test not detected. DIAGNOSTIC DATA: 1. Brain CT, impression; no acute intracranial process. 2. Cervical spine CT, impression; no evidence of acute osseous abnormality of the cervical spine. Possible right apical lung nodule. A CT chest with contrast is recommended for further evaluation. 3. Chest x-ray, impression; no evidence of acute cardiopulmonary process. 4. Pelvis x-ray, impression; left femoral neck fracture. 5. Left hip x-ray, impression; left femoral neck fracture. ASSESSMENT: 1. Status post fall from ladder, approximately 15 feet without loss of consciousness. 2. Left femoral neck fracture. 3. Acute traumatic pain secondary to above. 4. History of hypertension, coronary artery disease, and pacemaker defibrillator. PLAN: Pain regimen. Admission to the surgical floor. Orthopedic Surgery plans to take the patient to the OR this evening for repair of his left femoral neck fracture. The patient will be n.p.o. Heart healthy diet postop. Pain management. PT and OT to evaluate and treat postop. Maintenance IV fluids, normal saline at 100 mL an hour. We will repeat labs in the morning. The plan was discussed with the patient who agrees. The plan was discussed with the attending who agrees. Job ID: [id number]
[2020-03-09 16:01] LABS: Magnesium 1.2 mg/dL (1.6-2.6); Phosphorus 2.9 mg/dL (2.3-4.7)
[2020-03-09] MEDS ORDERED: Bupivacaine HCl 0.5%/Epinephrine 1:200,000/PF 30 ml Vial ONE (16:03)
[2020-03-09] MEDS ORDERED: Albumin 5% 500 ML ONE (16:13)
--- NOTE | 2020-03-09 19:09 | CON ---
DATE OF CONSULTATION: CONSULTING TEAM: General Surgery Trauma. HISTORY OF PRESENT ILLNESS: Mr. Hussein is a 64-year-old male, who was up on a ladder approximately 16 feet. He was cutting down a tree. A limb fell and hit his ladder, knocking him off balance. He fell to the ground. He landed on his left side. He was unable to ambulate. He had severe pain in the hip. He was taken to the emergency department by EMS. X-rays have shown a femoral neck fracture of the left hip. Orthopedics has been consulted for this injury. He has received pain control and is currently comfortable. PAST MEDICAL HISTORY: Coronary artery disease. He denies other active medical problems. PAST SURGICAL HISTORY: Multiple cardiac catheterizations as well as a pacemaker placement. He has also had previous coronary artery bypass graft. The patient has had bilateral wrist surgeries for fracture in the past as well. SOCIAL HISTORY: The patient denies tobacco, alcohol, or drug use. ALLERGIES: DIAZEPAM. MEDICATIONS: Are positive for 1. Aspirin. 2. Plavix. 3. Sertraline. 4. Carvedilol. 5. Atorvastatin. 6. Furosemide. 7. Bupropion. FAMILY MEDICAL HISTORY: Noncontributory. REVIEW OF SYSTEMS: Positive for left hip pain. Otherwise negative 10 point review of systems. IMAGES: X-rays of the left hip demonstrated displaced left femoral neck fracture. PHYSICAL EXAMINATION: VITAL SIGNS: Temperature is 98.3, pulse is 81, respiratory rate 16, oxygen saturation 95%. GENERAL: He is alert, lying supine, no apparent distress. HEENT: Normocephalic, atraumatic. RESPIRATORY: Breathing comfortably. ABDOMEN: Soft, nontender, nondistended. CARDIOVASCULAR: Pulses palpable peripherally and regular. MUSCULOSKELETAL: The patient's left lower extremity has external rotation and slight shortening. He has pain with hip motion. He is unable to actively move the hip. He can flex and extend the foot and ankle. He has intact sensation distally. Palpable dorsalis pedis pulse. He has a superficial abrasion over the right lower leg. IMPRESSION: Left femoral neck fracture after a fall from a height. PLAN: The patient will be admitted to the hospital by the General Surgical Trauma Service. We will take the patient to the operating room for hemiarthroplasty of the left hip to restore the ability to mobilize and prevent complications of prolonged bedrest. Risks have been reviewed. He will have antibiotics on-call to the operating room. He will have DVT prophylaxis and pain control. Job ID: [id number]
--- NOTE | 2020-03-09 19:43 | RAD ---
PELVIS ONE VIEW: 03/09/20 HISTORY: Hemiarthroplasty. COMPARISON: Radiograph same day. FINDINGS: Satisfactory appearance of left hip hemiarthroplasty. Expected postoperative gas and edema. IMPRESSION: Satisfactory postoperative appearance. POS: OFF
--- NOTE | 2020-03-09 19:44 | RAD ---
LEFT HIP ONE VIEW: 03/09/20 HISTORY: Hemiarthroplasty. COMPARISON: Radiograph same day. FINDINGS: Satisfactory postoperative appearance left hip hemiarthroplasty. Expected postoperative gas and edema . IMPRESSION: Satisfactory postoperative appearance. POS: OFF
[2020-03-09] MEDS ORDERED: Carvedilol 3.125 MG TAB PO SCH (21:00)
[2020-03-09] MEDS: CEFAZOLIN 2 GM in Premix Bag 1 BAG IVPB SCH (21:25)
[2020-03-09] MEDS: Famotidine 20 MG TAB PO SCH (21:26)
[2020-03-09] MEDS: Carvedilol 25 MG TAB PO SCH (21:26)
--- NOTE | 2020-03-09 21:57 | OP ---
DATE OF PROCEDURE: 03/09/2020 PROCEDURE PERFORMED: Left hip hemiarthroplasty, bipolar. PREOPERATIVE DIAGNOSIS: Left displaced femoral neck fracture. POSTOPERATIVE DIAGNOSIS: Left displaced femoral neck fracture. COMPLICATIONS: None. ESTIMATED BLOOD LOSS: 150 mL. URBAN DESIGN CONSULTANT: Mamta Oliveira PA-C IMPLANTS: DePuy basic press-fit stem size 6 with a size +8.5, 57 mm bipolar shell. INDICATIONS: Mr. Hussein is a 64-year-old male, who has fallen from a ladder. He fractured his left femoral neck. He has been indicated for hemiarthroplasty of the hip to restore mobility, prevent complications of prolonged bedrest and relieve pain. Risks have been reviewed in detail. He has elected to proceed with the operation. DESCRIPTION OF PROCEDURE: The patient was identified in the preoperative holding area. His correct extremity was marked. He was carried to the operating room. He was positioned supine. General anesthesia was induced. A multidisciplinary time-out was performed. He was given intravenous antibiotics. The left lower extremity was prepped and draped in sterile fashion in the lateral decubitus position. We began the procedure with a posterior approach to the hip, dissecting down through the subcutaneous tissues to the fascia. The fascia was opened. We then exposed the underlying short external rotators of the hip. We performed a capsulotomy and exposed the underlying femoral neck fracture. The broken femoral head and neck fragments were removed. We then performed a new osteotomy with an oscillating saw. At this point, we irrigated the acetabular cup and removed all bony fragments. At this point, we then proceeded to repair the femoral canal. We entered the canal with a broach. We followed this by reaming up to a size 6 reamer. We then broached up from a size 3 to a size 6. This gave a good fit. We trialed off the broach and a +8.5 length was appropriate. The patient had a stable hip with this. We removed the trial components. We then placed our final components after thorough irrigation. Again, we reduced the hip. We then closed the short external rotators and the capsule with Ethibond suture through drill holes. We completed a layered closure. A sterile dressing was applied. The patient was taken to recovery room in good condition. The clinical lab assistant surgeon was responsible for positioning the patient, preparing the injured extremity, applying the tourniquet, and assisting in preparation for surgery. The clinical lab assistant was instrumental in reducing the injured limb by applying traction and reduction maneuvers as well as holding retractors and reduction tools. The clinical lab assistant also was instrumental in assisting in exposure throughout the operation using appropriate retractors. The clinical lab assistant participated in closure of the operative site as well as dressing application and splint application. Job ID: [id number]
[2020-03-09] MEDS: Morphine 4 MG/ML VIAL SLOW IVP PRN (22:02)
[2020-03-09 23:30] VITALS: BMI 29.9
[2020-03-10] MEDS ORDERED: FLU VACC QS2020-21(65YR UP)/PF 240 MCG/0.7 ML SYRINGE IM ONE (01:00)
[2020-03-10] MEDS: Morphine 4 MG/ML VIAL SLOW IVP PRN ×2 (02:17→09:26)
[2020-03-10 05:49] LABS: Hemoglobin 13.2 g/dL (14.0-18.0); Mean Corpuscular HGB CONC 33.2 g/dL (32.0-36.0); Mean Corpuscular Hemoglobin 29.7 pg (27.0-31.0); Mean Corpuscular Volume 89.4 fL (78.0-98.0); Mean Platelet Volume 10.1 fL (7.4-10.4); Platelet Count 96 thou/uL (130-400); Red Blood Cell (RBC) Count 4.46 mill/uL (4.70-6.10); White Blood Cell (WBC) Count 10.6 thou/uL (4.8-10.8)
[2020-03-10] MEDS: CEFAZOLIN 2 GM in Premix Bag 1 BAG IVPB SCH (05:52)
[2020-03-10 06:15] LABS: Anion Gap 12 mmol/L (10-20); BUN (Urea Nitrogen) 23 mg/dL (8.4-25.7); Calc. Creatinine Clearance 88 mL/min (70-130); Calcium 8.2 mg/dL (7.8-10.44); Carbon Dioxide 20 mmol/L (23-31); Chloride 110 mmol/L (98-107); Estimated GFR-MDRD 58; Glucose 114 mg/dL (80-115); Magnesium 1.1 mg/dL (1.6-2.6); Phosphorus 3.6 mg/dL (2.3-4.7); Potassium 3.9 mmol/L (3.5-5.1); Sodium 138 mmol/L (136-145)
[2020-03-10] MEDS ORDERED: Cyclobenzaprine 10 MG TAB PO PRN (06:44)
[2020-03-10] MEDS ORDERED: Ibuprofen 600 MG TAB PO PRN (06:44)
[2020-03-10] MEDS ORDERED: traMADol HCl 50 MG TAB PO PRN (06:44)
[2020-03-10] MEDS: Acetaminophen 500 MG TAB PO SCH ×3 (07:00→18:10)
[2020-03-10] MEDS ORDERED: Potassium Phosphate 15 MMOL in Sodium Chloride 0.9% 250 ML 250 ML IVPB SCH (07:00)
[2020-03-10] MEDS ORDERED: Potassium Phosphate 15 MMOL, Magnesium Sulfate 4 GM in Sodium Chloride 0.9% 250 ML 250 ML IVPB SCH (07:15)
[2020-03-10] MEDS: Carvedilol 25 MG TAB PO SCH ×2 (08:48→21:34)
[2020-03-10] MEDS: Bupropion 150 MG XL TAB PO SCH (08:48)
[2020-03-10] MEDS: Famotidine 20 MG TAB PO SCH ×2 (08:48→21:35)
[2020-03-10] MEDS: Polyethylene Glycol 3350 17 GM Packet PO SCH (08:48)
[2020-03-10] MEDS: Tamsulosin HCl 0.4 MG CAP PO SCH (08:48)
--- NOTE | 2020-03-10 12:03 | PRG ---
DATE OF SERVICE: 03/10/2020 SUBJECTIVE: The patient was seen on morning rounds with Dr. Rodrigez this morning. Before entering the room, the team spoke with PT who reported that the patient experienced 10/10 pain while working with the physical therapist. When we talked with the patient, he was extremely sleepy and was falling asleep while talking to us. He reports that he is doing well and is agreeable to going to rehab pending his discharge from the hospital. His daughter was also in the room and she also thought this was the best plan. OBJECTIVE: VITAL SIGNS: Temperature 98.2, pulse 80, respirations 18, O2 saturation 100% on 3.5 L of nasal cannula, blood pressure 131/76. GENERAL: Well-appearing elderly male, resting comfortably in bed, in no acute distress. HEENT: Head is atraumatic, normocephalic. RESPIRATORY: Bilateral symmetric chest rise. No respiratory distress. CARDIOVASCULAR: Regular rate and rhythm. EXTREMITIES: Neurovascularly intact x4. NEUROLOGIC: No focal deficits. LABORATORY DATA: White blood cell count 10.6, hemoglobin 13.2, hematocrit 39.9, platelet count 96. Sodium 138, potassium 3.9, chloride 110, bicarb 20, BUN 23, creatinine 1.25, glucose 114, calcium 8.2, phosphorus 3.6, magnesium 1.1. DIAGNOSTIC IMAGIN. Pelvis x-ray satisfactory postoperative appearance. 2. Hip x-ray satisfactory postoperative appearance. ASSESSMENT: 1. Status post fall from ladder without loss of consciousness. 2. Left femoral neck fracture, status post repair. 3. Acute traumatic pain secondary to above. 4. History of hypertension, coronary artery disease, pacemaker. PLAN: The patient is now postop day #1 status post left hip hemiarthroplasty. He is weightbearing as tolerated and is encouraged to work with PT and OT. He now has a heart healthy diet and p.o. intake is encouraged. We will continue to provide supportive care and replace electrolytes as needed. We will continue to optimize the patient's pain management. The patient and daughter both agreed that he will need rehab placement after his discharge from the hospital . The patient was seen and evaluated by Dr. Rodrigez. Plan was discussed with patient and daughter who are in agreement. Job ID: [id number] [facility]
--- NOTE | 2020-03-10 17:30 | EKG ---
Test Reason : Blood Pressure : / mmHG Vent. Rate : 080 BPM Atrial Rate : 080 BPM P-R Int : 130 ms QRS Dur : 186 ms QT Int : 476 ms P-R-T Axes : 000 -85 110 degrees QTc Int : 548 ms AV dual-paced rhythm Abnormal ECG No previous ECGs available Confirmed by DR. Salome MONIQUE ([id number]) on 03/10/2020 5:29:40 PM Referred By: JOSH Confirmed By:DR. Salome MONIQUE
[2020-03-10] MEDS: traMADol HCl 50 MG TAB PO PRN (18:10)
[2020-03-10] MEDS ORDERED: Melatonin 3 MG TAB PO PRN (22:03)
[2020-03-11] MEDS: Acetaminophen 500 MG TAB PO SCH ×3 (00:33→12:28)
[2020-03-11] MEDS: Bupropion 150 MG XL TAB PO SCH (08:56)
[2020-03-11] MEDS: Tamsulosin HCl 0.4 MG CAP PO SCH (08:56)
[2020-03-11] MEDS: Polyethylene Glycol 3350 17 GM Packet PO SCH (08:56)
[2020-03-11] MEDS: Carvedilol 25 MG TAB PO SCH (08:56)
[2020-03-11] MEDS: Famotidine 20 MG TAB PO SCH (08:56)
[2020-03-11] MEDS ORDERED: Clopidogrel Bisulfate 75 MG TAB PO SCH (09:00)
[2020-03-11] MEDS: traMADol HCl 50 MG TAB PO PRN (12:28)
[2020-03-11 16:06] VITALS: BP 137/77; TEMP 98.3
== END 2020-03-11 17:40 | DRG 522 ==
LOC: ERS 12:02 → SDC 13:45 → SURG A 13:46
PROVIDERS: ADMIT Specialist; ATTEND Specialist
PROC: 0SRS0JA Replacement of Left Hip Joint, Femoral Surface with Synthetic Substitute, Uncemented, Open Approach (ICD-10-PCS; principal; 2020-03-09)
DX: S72.002A Fracture of unspecified part of neck of left femur, initial encounter for closed fracture (principal); Z20.828 Contact with and (suspected) exposure to other viral communicable diseases; W11.XXXA Fall on and from ladder, initial encounter; I10 Essential (primary) hypertension; I25.10 Atherosclerotic heart disease of native coronary artery without angina pectoris; R91.1 Solitary pulmonary nodule; Z88.8 Allergy status to other drugs, medicaments and biological substances; Z79.02 Long term (current) use of antithrombotics/antiplatelets; I25.2 Old myocardial infarction; Z95.810 Presence of automatic (implantable) cardiac defibrillator; Z95.1 Presence of aortocoronary bypass graft; Z87.891 Personal history of nicotine dependence; Y93.89 Activity, other specified
CPT/HCPCS: 36415; 70450; 71045; 72125; 72170; 80048; 80053; 83735; 84100; 85025; 85027; 85610; 85730; 86850; 86900; 86901; 93005; 93010; 96374; 96375; J0690; J1100; J2250; J2270; J2405; J2704; J3010; J3475; J7050; P9045; U0002